=== PATIENT | male | born 1935 | race Caucasian/White ===

== ENCOUNTER 2018-02-26 11:35 | Emergency (ER) | payer OTHER ==
[2018-02-26 11:53] LABS: Hemoglobin 12.2 g/dL (14.0-18.0); Mean Corpuscular HGB CONC 29.9 g/dL (32.0-36.0); Mean Corpuscular Hemoglobin 29.8 pg (27.0-31.0); Mean Corpuscular Volume 99.7 fL (78.0-98.0); Mean Platelet Volume 6.8 fL (7.4-10.4); Platelet Count 140 thou/uL (130-400); RBC Distribution Width 15.5 % (11.5-14.5); Red Blood Cell (RBC) Count 4.11 mill/uL (4.70-6.10); White Blood Cell (WBC) Count 12.9 thou/uL (4.8-10.8)
[2018-02-26 12:06] LABS: Eosinophils 1 % (0-10); Lymphocytes 53 % (21-51); MDiff Complete? YES; Monocytes 8 % (0-10); Neutrophil 38 % (42-75); PLT Morphology Comment Appears Adequate; Troponin I 0.123 ng/mL (< 0.028)
[2018-02-26 12:07] LABS: ALT (SGPT) 56 U/L (8-55); AST (SGOT) 45 U/L (5-34); Albumin 3.1 g/dL (3.4-4.8); Alkaline Phosphatase 84 U/L (40-150); Anion Gap 21 mmol/L (10-20); BUN (Urea Nitrogen) 14 mg/dL (8.4-25.7); Bilirubin, Total 0.3 mg/dL (0.2-1.2); Calc. Creatinine Clearance 0 mL/min (70-130); Calcium 8.7 mg/dL (7.8-10.44); Carbon Dioxide 13 mmol/L (23-31); Chloride 107 mmol/L (98-107); Estimated GFR-MDRD 52; Globulin 3.8 g/dL (2.4-3.5); Glucose 301 mg/dL (83-110); Protein, Total 6.9 g/dL (5.8-8.1); Sodium 137 mmol/L (136-145)
== END 2018-02-26 15:20 ==
LOC: NAV ERS 11:35
DX: I46.9 Cardiac arrest, cause unspecified (principal); I25.2 Old myocardial infarction; Z86.73 Personal history of transient ischemic attack (TIA), and cerebral infarction without residual deficits; I10 Essential (primary) hypertension; E11.9 Type 2 diabetes mellitus without complications; K21.9 Gastro-esophageal reflux disease without esophagitis
CPT/HCPCS: 36415; 80053; 82553; 84484; 85025; 99285